=== PATIENT | female | born 1960 | race Caucasian/White ===

== ENCOUNTER 2016-08-19 11:26 | Emergency (ER) ==
[2016-08-19] MEDS ORDERED: ASPIRIN PO STA (11:43)
--- NOTE | 2016-08-19 11:52 | ED EKG INTERP ---
EKG Interpretation - EKG Time of EKG reading by physician:: 11:49 EKG Read and Signed by:: Rashel Dubose EKG Interpretation (*Must complete 3 of following elements*): Normal Rate: 84 Rhythm: Normal sinus [place]: normal [place] Interval: normal ST Wave: normal
[2016-08-19 12:18] LABS: MANUAL DIFF NEEDED? NO
[2016-08-19 12:22] LABS: BASO% 0.2 % (0.0-0.8); EOS# 0.05 X1000 (0.0-0.7); EOS% 0.6 % (0.0-10.0); HEMATOCRIT 44.6 % (37.0-47.0); HEMOGLOBIN 15.2 g/dL (12.0-16.0); IMM GRAN# 0.02 X1000 (0.0-0.04); IMM GRAN% 0.2 % (0.0-0.5); LYMPH# 1.13 X1000 (1.2-3.4); LYMPH% 12.9 % (20.5-51.1); MCH 32.5 PG (27-31); MCHC 34.1 g/dL (33-37); MCV 95.3 FL (81-99); MONO# 0.46 X1000 (0.11-0.59); MONO% 5.3 % (1.7-9.3); MPV 9.7 FL (7.4-10.4); NEUT% 80.8 % (42.2-75.2); PLT 237 X1000 (130-400); RBC 4.68 XMIL (4.2-5.4)
[2016-08-19 12:32] LABS: INR 0.97; PROTIME 10.3 Seconds (9.2-11.7); PTT 27.5 Seconds (22.0-36.0)
[2016-08-19 12:44] LABS: AGAP 13; ALBUMIN 4.3 g/dL (3.5-5.0); ALKALINE PHOSPHATASE 52 U/L (32-104); BUN 18 mg/dL (8-22); CALCIUM 9.8 mg/dL (8.8-10.2); CHLORIDE 102 mmol/L (98-107); COSMO 280; GOT 57 U/L (10-30); GPT 35 U/L (10-36); MAGNESIUM 2.1 mg/dL (1.5-2.7); POTASSIUM 4.5 mmol/L (3.5-5.1); SODIUM 139 mmol/L (136-145); TCO2 24 mmol/L (25-35); TOTAL PROTEIN 7.5 g/dL (6.3-8.3)
[2016-08-19 12:48] LABS: CK PROFILE 489 U/L (24-173)
--- NOTE | 2016-08-19 12:49 | PROVIDER DOCUMENTATION ---
HPI-Chest Pain - General Chief Complaint: Chest Pain Stated Complaint: CP Time Seen by Provider: 08/19/16 12:34 Source: patient Allergies/Adverse Reactions: Patient Allergies Allergy/AdvReac Type Severity Reaction Status Date / Time No Known Allergies Allergy Verified 08/19/16 12:39 Home Medications: Celecoxib [Celebrex] 50 mg PO DAILY 08/19/16 Estrogen,Con/M-Progest Acet [Prempro 0.3 mg-1.5 mg Tablet] 1 each PO DAILY 08/19 Prednisone 5 mg PO DIRECTED 08/19/16 - History of Present Illness-CP Location: reports: epigastric Quality of Pain: reports: pressure Severity in ED: mild Onset/Duration: abrupt, this morning Timing: gone now Context/Activities at Onset: reports: none Modifying Factors: improves with: antacids (took ~1 1/2 hours prior to resolution) Associated Symptoms: denies: nausea, vomiting Similar Symptoms Previously?: No Review of Systems - Adult - REVIEW OF SYSTEMS - ADULT Constitutional: reports: no symptoms reported. denies: chills, fever Eyes: reports: no symptoms reported. denies: discharge, blurred vision Ears, Nose, Mouth & Throat: reports: no symptoms reported. denies: ear pain, nose pain Cardiovascular: reports: chest pain Respiratory: reports: no symptoms reported. denies: cough, dyspnea on exertion Gastrointestinal: reports: abdominal pain (epigastric). denies: constipation, diarrhea, nausea, vomiting Genitourinary: reports: no symptoms reported. denies: dysuria, discharge Musculoskeletal: reports: no symptoms reported. denies: bone pain, frequent leg cramps Integumentary: reports: no symptoms reported. denies: hives, itching Neurological: reports: no symptoms reported. denies: ataxia, loss of balance Psychiatric: reports: no symptoms reported. denies: anxiety, alcohol/drug dependence Endocrine: reports: no symptoms reported. denies: cold intolerance, heat intolerance Hematologic/Lymphatic: reports: no symptoms reported. denies: blood clots, easy bruising Allergic/Immunologic: reports: no symptoms reported. denies: allergic reactions , eczema All Other Systems: Reviewed and Negative Past History - Adult - PAST MEDICAL HISTORY-ADULT Review of Records: reports: Old Records Reviewed, Nursing Assessment Review, Medications Reviewed Cardiovascular: reports: denies history Musculoskeletal: reports: arthritis Psychiatric: reports: denies history - PRIOR SURGERIES/PROCEDURES Surgical/Procedure History: reports: cholecystectomy, tonsillectomy, other ( tubal ligation) - IMMUNIZATION STATUS Childhood Immunizations: See Nurse Assessment Flu Vaccine: See Nurse Assessment - FAMILY HISTORY Family History: reviewed, not pertinent - SOCIAL HISTORY Smoking: non-smoker Substance Use: none/never Alcohol Use Frequency: never Physical Exam-General - PHYSICAL EXAM-ADULT Initial Vital Signs Reviewed: Yes - CONSTITUTIONAL General Appearance: appears well, alert, no apparent distress - EYES Eyes: PERRL/EOMI, pink conjunctivae - HEAD, EARS, NOSE, MOUTH & THROAT HENMT: normocephalic/atraumatic, moist mucous membranes - NECK Neck: non-tender, full range of motion - RESPIRATORY Respiratory: chest non-tender, lungs clear, normal breath sounds - CARDIOVASCULAR Cardiovascular: normal peripheral pulses, regular rate, rhythm, no edema - GASTROINTESTINAL (ABDOMEN) Abdominal Exam: normal bowel sounds, non tender, soft - GENITOURINARY Female Genitalia/Pelvic Exam: deferred Rectal Exam: deferred - LYMPHATIC Lymphatic: no adenopathy - MUSCULOSKELETAL Back Exam: normal inspection, no vertebral tenderness Extremity: normal range of motion, non-tender - SKIN Integumentary: normal color, normal turgor - NEUROLOGIC Neurologic: grossly normal, no motor/sensory deficits - PSYCHIATRIC Psych/Mental Status: normal mood/affect, normal thought content, normal thought process, oriented x 3 Progress - PLAN OF CARE/RESULTS Progress/Plan/Lab Results: Vital Signs - 24 hr 08/19/16 11:40 Temperature 97.5 F L Pulse Rate 88 Respiratory 20 Rate Blood Pressure 163/87 O2 Sat by Pulse 100 Oximetry Orders Category Date Time Status Cardiac Monitoring DIRECTED Care 08/19/16 11:43 Active Saline Loc NOW Care 08/19/16 11:43 Active CHEST-2 VIEWS [RAD] Stat Exams 08/19/16 11:43 Draft CBC WITH ELECTRONIC DIFF [HEME] Stat Lab 08/19/16 11:53 Completed CK PROFILE [SP CHEM] Stat Lab 08/19/16 11:53 Completed CK PROFILE [SP CHEM] Stat Lab 08/19/16 14:13 Received COMPREHENSIVE METABOLIC PANEL [CHEM] Stat Lab 08/19/16 11:53 Completed D-DIMER [CHEM] Stat Lab 08/19/16 11:53 Completed MAGNESIUM [CHEM] Stat Lab 08/19/16 11:53 Completed PRO B-NATRIURETIC PEPTIDE Stat Lab 08/19/16 11:53 Completed PROTIME WITH INR [COAG] Stat Lab 08/19/16 11:53 Completed PTT [COAG] Stat Lab 08/19/16 11:53 Completed TROPONIN T Stat Lab 08/19/16 11:53 Completed TROPONIN T Stat Lab 08/19/16 14:13 Received Aspirin Med 08/19/16 11:43 Discontinued 325 mg PO STAT STA EKG [EKG] Stat Ther 08/19/16 11:43 Ordered EKG [EKG] Stat Ther 08/19/16 13:53 Ordered Laboratory Tests 08/19/16 08/19/16 08/19/16 11:53 11:53 11:53 WBC 8.74 RBC 4.68 Hgb 15.2 Hct 44.6 MCV 95.3 MCH 32.5 H MCHC 34.1 RDW Std Deviation 12.2 Plt Count 237 MPV 9.7 Immature Gran % (Auto) 0.2 Neut % (Auto) 80.8 H Lymph % (Auto) 12.9 L [place] % (Auto) 5.3 Eos % (Auto) 0.6 Baso % (Auto) 0.2 Immature Gran # (Auto) 0.02 Neut # (Auto) 7.06 H Lymph # (Auto) 1.13 L [place] # (Auto) 0.46 Eos # (Auto) 0.05 Baso # (Auto) 0.02 PT INR PTT (Actin FS) D-Dimer 0.17 Sodium 139 Potassium 4.5 Chloride 102 Carbon Dioxide 24 L Anion Gap 13 BUN 18 Creatinine 0.8 Estimated GFR/1.73 m2 > 60 BUN/Creatinine Ratio 23 Glucose 100 Calculated Osmolality 280 Calcium 9.8 Magnesium 2.1 Total Bilirubin 1.00 AST 57 H ALT 35 Alkaline Phosphatase 52 Creatine Kinase 489 H Creatine Kinase Index 1.0 CK-MB (CK-2) 4.82 Troponin T Wml-[id number]-Fdmfvfkthno Pept Total Protein 7.5 Albumin 4.3 Globulin 3.2 Albumin/Globulin Ratio 1.3 08/19/16 08/19/16 08/19/16 11:53 11:53 11:53 WBC RBC Hgb Hct MCV MCH MCHC RDW Std Deviation Plt Count MPV Immature Gran % (Auto) Neut % (Auto) Lymph % (Auto) [place] % (Auto) Eos % (Auto) Baso % (Auto) Immature Gran # (Auto) Neut # (Auto) Lymph # (Auto) [place] # (Auto) Eos # (Auto) Baso # (Auto) PT 10.3 INR 0.97 PTT (Actin FS) 27.5 D-Dimer Sodium Potassium Chloride Carbon Dioxide Anion Gap BUN Creatinine Estimated GFR/1.73 m2 BUN/Creatinine Ratio Glucose Calculated Osmolality Calcium Magnesium Total Bilirubin AST ALT Alkaline Phosphatase Creatine Kinase Creatine Kinase Index CK-MB (CK-2) Troponin T < 0.010 Mev-K-Fgaprzhmrxf Pept 84 Total Protein Albumin Globulin Albumin/Globulin Ratio - EKG 2 Time of EKG reading by physician:: 14:04 EKG Read and Signed by:: Rashel Dubose EKG Interpretation (*Must complete 3 of following elements*): Abnormal Rate: 82 Rhythm: normal sinus [place]: normal Comments: cannot rule out anterior infarct, age undetermined - XRAY 1 XRAY Study: Chest Impression: Normal XRAY Interpretation: NAD Departure - Departure Time of Disposition Order: 14:29 DIAGNOSIS: Gastroesophageal reflux disease Qualifiers: Esophagitis presence: esophagitis presence not specified Qualified Code(s): K21.9 - Gastro-esophageal reflux disease without esophagitis Disposition: HOME 01 Certified Medical Emergency: Emergent Condition: Good Additional Instructions: Follow up with your PCP if symptoms recur. ED Follow Up Instructions: You have been treated by a care provider in the Emergency Department. These instructions are being provided to you so you can have an understanding of how to care for yourself upon discharge. Upon discharge from the Emergency Department, you are responsible for making arrangements for follow-up care by a physician of your choice. Take all prescribed medications as directed. Return to the Emergency Department immediately for any new or worsening symptoms. You may call the Physician Referral phone number at [phone] to obtain a list of Physicians who are taking new patients. Referrals: Chris Pittman MD [Primary Care Provider] - Attestation - Scribe Verification/Attestation Scribe:: Suzette Estes Acting as Scribe for:: Rashel Dubose Scribe documention review:: This chart was documented by a scribe and accurately reflects the service the provider performed and the decisions made by the provider. - Physician/ Mid-level Attestation Patient care was provided by Mid-level provider (PROFILING MACHINE SET UP OPERATOR TOOL/PA):: No
[2016-08-19 13:02] LABS: CK-MB 4.82 ng/mL (0.0-5.0)
--- NOTE | 2016-08-19 13:40 | Diag Imaging Result Document ---
PROCEDURE NAME: CHEST-2 VIEWS - 08/19/2016 PA AND LATERAL RADIOGRAPH OF THE CHEST: COMPARISON: None available. FINDINGS: The lungs are grossly clear. There is no discrete pleural fluid collection or evidence of pneumothorax. The cardiomediastinal silhouette and upper airway are grossly unremarkable. IMPRESSION: No evidence of acute chest pathology.
[2016-08-19 15:00] VITALS: BP 133/71
[2016-08-19 15:28] LABS: CK-MB 4.43 ng/mL (0.0-5.0)
--- NOTE | 2016-08-20 06:05 | EKG Report ---
Test Performed on : 08/19/2016 11:49:19 AM Test Reason : Chest Pain Blood Pressure : / mmHG Vent. Rate : 084 BPM Atrial Rate : 084 BPM P-R Int : 128 ms QRS Dur : 074 ms QT Int : 358 ms P-R-T Axes : 057 025 043 degrees QTc Int : 423 ms Normal sinus rhythm. Normal ECG No previous ECGs available Unconfirmed Result
--- NOTE | 2016-08-20 06:06 | EKG Report ---
Test Performed on : 08/19/2016 2:04:11 PM Test Reason : CP Blood Pressure : / mmHG Vent. Rate : 082 BPM Atrial Rate : 082 BPM P-R Int : 138 ms QRS Dur : 078 ms QT Int : 370 ms P-R-T Axes : 057 013 045 degrees QTc Int : 432 ms Normal sinus rhythm. Cannot rule out Anterior infarct , age undetermined Abnormal ECG When compared with ECG of 19-AUG-2016 11:49, (Unconfirmed) No significant change was found Unconfirmed Result
== END 2016-08-19 15:00 | disposition home or self-care (01) ==
LOC: ED 11:26
DX: K21.9 Gastro-esophageal reflux disease without esophagitis (principal); R94.31 Abnormal electrocardiogram [ECG] [EKG]; R10.13 Epigastric pain; R07.9 Chest pain, unspecified; M19.90 Unspecified osteoarthritis, unspecified site; Z79.899 Other long term (current) drug therapy
CPT/HCPCS: 36415; 71020; 80053; 82550; 82553; 83735; 83880; 84484; 85025; 85379; 85610; 85730; 93005; 99283